=== PATIENT | male | born 1960 | race Caucasian/White ===

== ENCOUNTER 2020-05-13 12:36 | Outpatient (CLI) | payer OTHER, SELFPAY ==
--- NOTE | 2020-05-13 12:48 | MR_ITS ---
WS: [id number] MRI CERVICAL SPINE NONCONTRAST TECHNIQUE: Sagittal T1, T2 and STIR imaging. Axial T2, gradient, and fiesta imaging. CLINICAL INFORMATION: DECREASED ROM, PAIN, INJURY, SUBSEQUENT ENCOUNTER COMPARISON: None. FINDINGS: Straightening of the normal cervical lordosis. Chronic appearing myelomalacia in the cervical cord at C3-C4. Moderate spondylitic changes. Bony fusion C6-7 vertebral bodies. C2-C3: No significant disc bulging. Mild facet arthropathy. Mild left foraminal narrowing. C3-C4: Disc osteophyte complex with endplate ridging. Moderate facet arthropathy. Moderate bilateral bony foraminal narrowing. Tiny central protrusion. Moderate central canal stenosis. C4-C5: Disc osteophyte complex with a small central disc osteophyte protrusion. Slight contact of the cervical cord. Moderate central canal stenosis. Moderate to advanced facet arthropathy. Moderate to severe bilateral bony foraminal narrowing. C5-C6: Disc osteophyte complex with endplate ridging. Moderate central canal stenosis and slight inde ntation on cervical cord. Moderate facet arthropathy. Moderate to severe bony foraminal narrowing wor se in the left. C6-C7: Evidence of prior interbody bony fusion. Osteophytic ridging. Mild bilateral bony foraminal na rrowing. Spinal canal is patent. C7-T1: Mild disc bulging and osteophytic ridging. Mild bilateral bony foraminal narrowing. Spinal can al is patent. Visualized brain stem structures: Normal. Prevertebral soft tissues: Normal. MR/MR cervical spin wo con* [id number] IMPRESSION: 1. Straightening of the normal cervical lordosis with moderate spondylitic kaylie nges. 2. Multilevel central canal stenosis with chronic appearing myelomalacia in th e cervical cord at C3-4. 3. Moderate central canal stenosis C3-C4 and C4-5 with small central disc oste ophyte protrusions and slight indentation on cervical cord. 4. Moderate central canal stenosis C5-C6 due to disc osteophyte complex with e ndplate ridging. 5. Multilevel moderate to severe bony foraminal narrowing worse at bilateral C 3-C4, bilateral C4-C5, bilateral C5-C6 worse in the left. 6. Mild bilateral C6-C7 and C7-T1 bony foraminal narrowing.
== END 2020-05-13 12:37 | disposition home or self-care (01) ==
PROVIDERS: Family Provider Family Medicine; Visit Provider Nurse Practitioner Family
DX: R29.898 Other symptoms and signs involving the musculoskeletal system (principal); M54.2 Cervicalgia; S19.9XXA Unspecified injury of neck, initial encounter; R20.2 Paresthesia of skin; M48.02 Spinal stenosis, cervical region; G95.89 Other specified diseases of spinal cord; M25.78 Osteophyte, vertebrae; X58.XXXA Exposure to other specified factors, initial encounter
CPT/HCPCS: 72141